=== PATIENT | female | born 1985 | race American Indian/Alaskan Native ===

== ENCOUNTER 2021-01-07 12:20 | Emergency (ER) | payer MEDICAID ==
[~2021-01-07] VITALS: Ht 167.6 cm; Wt 113.6 kg
[2021-01-07] MEDS ORDERED: LORazepam 1 MG tablet PO ONE (12:45)
[2021-01-07] MEDS ORDERED: haloperidol lactate 5mg/ml inj IM ONE (12:45)
[2021-01-07 12:56] LABS: BASOPHILS # (AUTO) 0.1 X10'3 (0-0.2); BASOPHILS % (AUTO) 0.8 % (0-1); EOSINOPHILS # (AUTO) 0.1 X10'3 (0-0.9); EOSINOPHILS % (AUTO) 0.7 % (0-6); HEMATOCRIT 51.9 % (35.0-45.0); LYMPHOCYTES # (AUTO) 1.9 X10'3 (1.1-4.8); LYMPHOCYTES % (AUTO) 18.5 % (21-51); MEAN CORPUSCULAR HEMOGLOBIN 29.7 PG (27.0-31.0); MEAN CORPUSCULAR HGB CONC 32.8 g/dL (33.0-36.5); MEAN CORPUSCULAR VOLUME 90.5 FL (78-98); MEAN PLATELET VOLUME 8.8 FL (7.4-10.4); MONOCYTES # (AUTO) 0.5 X10'3 (0-0.9); MONOCYTES % (AUTO) 4.5 % (2-12); NEUTROPHILS # (AUTO) 7.7 X10'3 (1.8-7.7); NEUTROPHILS % (AUTO) 75.5 % (42-75); PLATELET COUNT 328 X10'3 (140-440); RED BLOOD COUNT 5.74 X10'6 (4.20-5.60); RED CELL DISTRIBUTION WIDTH 14.3 % (11.5-14.5); WHITE BLOOD COUNT 10.2 X10'3 (4.5-11.0)
[2021-01-07 13:12] LABS: ALANINE AMINOTRANSFERASE 108 U/L (12-78); ALBUMIN 3.8 G/DL (3.4-5.0); ALBUMIN/GLOBULIN RATIO 0.9 (1.1-1.5); ALKALINE PHOSPHATASE 109 IU/L (46-116); ANION GAP 14 (8-16); ASPARTATE AMINO TRANSFERASE 85 U/L (10-37); BILIRUBIN,TOTAL 0.6 MG/DL (0.1-1.0); BLOOD UREA NITROGEN 8 MG/DL (7-18); BUN/CREATININE RATIO 10.8 (6.6-38.0); CALCIUM 9.3 MG/DL (8.5-10.1); CHLORIDE 106 MMOL/L (99-107); CREATININE 0.74 MG/DL (0.40-0.90); GLUCOSE 254 MG/DL (70-104); POTASSIUM 4.6 MMOL/L (3.5-5.1); SODIUM 142 MMOL/L (135-145); TOTAL CARBON DIOXIDE 22.4 MMOL/L (24-32); TOTAL PROTEIN 8.2 G/DL (6.4-8.2); eGFR 89 ML/MIN
[2021-01-07 13:25] LABS: ETHANOL < 0.010 GM/DL (0.0-0.010)
[2021-01-07 18:21] LABS: URINE HCG NEGATIVE (NEG)
[2021-01-07 18:23] LABS: CLARITY,URINE CLOUDY (Clear); COLOR,URINE YELLOW (Yellow); GLUCOSE, URINE NEGATIVE (Neg); KETONES,URINE NEGATIVE (Neg); LEUKOCYTE ESTERASE ,URINE NEGATIVE (Neg); NITRITES, URINE NEGATIVE (Neg); OCCULT BLOOD,URINE NEGATIVE (Neg); PROTEIN,URINE NEGATIVE (Neg); UROBILINOGEN,URINE 0.2 E.U/dL (0.2-1.0)
[2021-01-07 18:24] LABS: UA COLLECTION TYPE VOIDED
[2021-01-07 18:29] LABS: URINE AMPHETAMINE SCREEN POSITIVE (Neg); URINE BARBITUATE SCREEN NEGATIVE (Neg); URINE BENZODIAZEPINES SCREEN NEGATIVE (Neg); URINE CANNABINOID SCREEN POSITIVE (Neg); URINE COCAINE SCREEN NEGATIVE (Neg); URINE METHADONE SCREEN NEGATIVE (Neg); URINE OPIATE SCREEN NEGATIVE (Neg); URINE PHENCYCLIDINE SCREEN NEGATIVE (Neg)
[2021-01-07 18:31] LABS: MUCUS STRANDS MANY /LPF (Neg); SQUAMOUS EPITHELIAL CELL,UR MANY /LPF (FEW)
[2021-01-07 18:32] LABS: BACTERIA,URINE 2+ /HPF (Neg); RBC,URINE 0-2 /HPF (0-2); WBC,URINE 0-4 /HPF (0-4)
--- NOTE | 2021-01-07 18:46 | NUR ---
One to one with the patient after she was moved to bed 23 in the ER overflow. She was very coperative with the move and gave a urine sample and was agreeable to covid swab. She has a flat affect. Her speech was soft and monotone. She reports she has been having increasing auditory hallucinations for several weeks and at this point are fairly constant. She states at times they are command to harm herself. When asked how her mood was she stated, "I don't really know how I feel" She stated that she has been having with paranoia and at times it changes to different things. She stated that she is having suicidal thoughts to take pills and other random things. She admits to using amphetamines. She reports her concentration and focus are very poor.
[2021-01-07] MEDS ORDERED: NO HOME MEDS (19:41)
--- NOTE | 2021-01-07 19:42 | NUR ---
The patient states she is a diabetic and was on insulin but could not state what she was taking. She stated that she has been off all medications since June
--- NOTE | 2021-01-07 19:47 | NUR ---
The patient appears to be sleeping on her bed
--- NOTE | 2021-01-07 19:51 | NUR ---
pt packet faxed to [facility]
--- NOTE | 2021-01-07 21:49 | NUR ---
The patient appears to be sleeping.
--- NOTE | 2021-01-07 22:50 | NUR ---
The patient appears to be sleeping
[2021-01-07] MEDS ORDERED: OLANZapine 2.5MG tablet PO ONE (23:05)
--- NOTE | 2021-01-07 23:14 | NUR ---
The patient is awake and stated voices were keeping her awake. She attempted to describe something that she felt would harm her and she asked that staff check on her during the night to make sure she was still alive. MD made aware and orders received.
--- NOTE | 2021-01-08 00:24 | NUR ---
The patient now appears to be sleeping
--- NOTE | 2021-01-08 01:43 | NUR ---
The patient appears to be sleeping
--- NOTE | 2021-01-08 04:17 | NUR ---
The patient appears to be sleeping
--- NOTE | 2021-01-08 05:09 | NUR ---
The patient has appeared to have slept well after receiving zyprexa 5mg
--- NOTE | 2021-01-08 05:10 | NUR ---
Call to [facility] and requested the patient be evaluated for medications
[2021-01-08 05:57] VITALS: BP 145/84
--- NOTE | 2021-01-08 06:38 | NUR ---
Patient sleeping on left side. No distress observed. Continue to monitor.
--- NOTE | 2021-01-08 07:59 | NUR ---
RN awoke patient to check BG. 152 without any treatment last night. Patient cooperative. Continue to monitor.
--- NOTE | 2021-01-08 09:20 | NUR ---
Patient sleeping. No distress obeserved. Continue to monitor.
--- NOTE | 2021-01-08 10:59 | NUR ---
relieving RN for break, pt is sleeping quietly on bed
--- NOTE | 2021-01-08 11:28 | NUR ---
[facility] calling for possible placement. Patient sleeping. No distress observed. Continue to monitor.
--- NOTE | 2021-01-08 12:10 | NUR ---
Patient sitting up and eating some of her breakfast. No distress observed. Continue to monitor.
--- NOTE | 2021-01-08 13:55 | NUR ---
relieving RN for break, sitter at bedside, pt is getting dressed as she is being transferred to [facility]
== END 2021-01-08 14:37 ==
LOC: ER 12:21
DX: F20.9 Schizophrenia, unspecified (principal); Z20.822 Contact with and (suspected) exposure to COVID-19; F29 Unspecified psychosis not due to a substance or known physiological condition; R45.851 Suicidal ideations; F15.10 Other stimulant abuse, uncomplicated; E11.65 Type 2 diabetes mellitus with hyperglycemia
CPT/HCPCS: 36415; 80053; 80305; 80320; 81001; 81025; 82948; 84443; 85025; 87635; 96372; 99285; C9803; J1630

== ENCOUNTER 2021-05-10 03:22 | Emergency (ER) | payer MEDICAID ==
[~2021-05-10] VITALS: Ht 165.1 cm; Wt 95.0 kg
[~2021-05-10 03:22] MED LIST: NO HOME MEDS
[2021-05-10] MEDS ORDERED: OLANZapine 5mg rapidly disint. tablet PO ONE (03:45)
[2021-05-10 04:30] LABS: BASOPHILS # (AUTO) 0.1 X10'3 (0-0.2); BASOPHILS % (AUTO) 0.7 % (0-1); EOSINOPHILS # (AUTO) 0.1 X10'3 (0-0.9); HEMATOCRIT 44.8 % (35.0-45.0); HEMOGLOBIN 15.1 g/dl (12.0-16.0); LYMPHOCYTES # (AUTO) 2.3 X10'3 (1.1-4.8); LYMPHOCYTES % (AUTO) 20.2 % (21-51); MEAN CORPUSCULAR HGB CONC 33.6 g/dL (33.0-36.5); MEAN CORPUSCULAR VOLUME 86.3 FL (78-98); MEAN PLATELET VOLUME 8.1 FL (7.4-10.4); MONOCYTES # (AUTO) 0.6 X10'3 (0-0.9); MONOCYTES % (AUTO) 5.1 % (2-12); NEUTROPHILS # (AUTO) 8.4 X10'3 (1.8-7.7); PLATELET COUNT 329 X10'3 (140-440); RED BLOOD COUNT 5.19 X10'6 (4.20-5.60); RED CELL DISTRIBUTION WIDTH 14.8 % (11.5-14.5); WHITE BLOOD COUNT 11.6 X10'3 (4.5-11.0)
[2021-05-10 04:42] LABS: URINE HCG NEGATIVE (NEG)
[2021-05-10 04:53] LABS: ALANINE AMINOTRANSFERASE 55 U/L (12-78); ALBUMIN 3.3 G/DL (3.4-5.0); ALBUMIN/GLOBULIN RATIO 0.8 (1.1-1.5); ALKALINE PHOSPHATASE 97 IU/L (46-116); ANION GAP 14 (8-16); BILIRUBIN,TOTAL 0.2 MG/DL (0.1-1.0); BLOOD UREA NITROGEN 15 MG/DL (7-18); BUN/CREATININE RATIO 20.5 (6.6-38.0); CALCIUM 8.6 MG/DL (8.5-10.1); CHLORIDE 107 MMOL/L (99-107); CREATININE 0.73 MG/DL (0.40-0.90); SODIUM 141 MMOL/L (135-145); TOTAL CARBON DIOXIDE 19.7 MMOL/L (24-32); TOTAL PROTEIN 7.4 G/DL (6.4-8.2); eGFR 90 ML/MIN
[2021-05-10 04:55] LABS: URINE AMPHETAMINE SCREEN NEGATIVE (Neg); URINE BARBITUATE SCREEN NEGATIVE (Neg); URINE BENZODIAZEPINES SCREEN NEGATIVE (Neg); URINE CANNABINOID SCREEN NEGATIVE (Neg); URINE COCAINE SCREEN NEGATIVE (Neg); URINE METHADONE SCREEN NEGATIVE (Neg); URINE OPIATE SCREEN NEGATIVE (Neg); URINE PHENCYCLIDINE SCREEN NEGATIVE (Neg)
[2021-05-10 05:19] LABS: ASPARTATE AMINO TRANSFERASE 20 U/L (10-37); GLUCOSE 194 MG/DL (70-104); POTASSIUM 3.7 MMOL/L (3.5-5.1)
[2021-05-10 05:21] LABS: ETHANOL < 0.010 GM/DL (0.0-0.010)
--- NOTE | 2021-05-10 12:47 | NUR ---
PACKET SENT TO [facility]
--- NOTE | 2021-05-10 14:00 | NUR ---
PT HAS BEEN SEEN BY [facility]. PT HAS BEEN PLACED ON A 5150 FOR PSYCHOSIS
--- NOTE | 2021-05-10 15:00 | NUR ---
RN received pt. from main ER. Pt. is A&Ox4 and in no apparent distress. Pt. reports she is here because she became paranoid. Pt. has medical hx of diabetes type II. Pt. reports she only takes Risperdal 4mg po at night, the last time she took it being 05/09. Pt. reports taking Basaglar every monring, but reports she last took it a week ago. RN completed med reconcilation and faxed to pharmacy. Pt. denies SI/HI, A/V hallucinations. Pt. reports prior SA in December 2020, taking an OD of sleeping pills and she does not remember what they were. Pt. reports she was taken to this ER and then released.
[2021-05-10] MEDS ORDERED: RISP2TAB85 PO (16:34)
[2021-05-10] MEDS ORDERED: RISP4TAB7 PO (16:39)
[2021-05-10] MEDS ORDERED: INSU100I31 SQ (16:41)
--- NOTE | 2021-05-10 17:00 | NUR ---
Pt. awake and resting in bed on left side. Pt. answering this RNs questions and in no apparent distress.
[2021-05-10 17:50] LABS: CLARITY,URINE SLIGHTLY CLOUDY (Clear); COLOR,URINE YELLOW (Yellow); GLUCOSE, URINE NEGATIVE (Neg); KETONES,URINE NEGATIVE (Neg); LEUKOCYTE ESTERASE ,URINE TRACE (Neg); NITRITES, URINE NEGATIVE (Neg); OCCULT BLOOD,URINE NEGATIVE (Neg); PROTEIN,URINE NEGATIVE (Neg); UROBILINOGEN,URINE 0.2 E.U/dL (0.2-1.0)
[2021-05-10 17:52] LABS: UA COLLECTION TYPE CLN CATCH MIDSTREAM
[2021-05-10 17:57] LABS: BACTERIA,URINE FEW /HPF (Neg); CAL OXALATE CRYSTALS 3+ /HPF (NEGATIVE); MUCUS STRANDS NONE SEEN /LPF (Neg); RBC,URINE NONE SEEN /HPF (0-2); SQUAMOUS EPITHELIAL CELL,UR MODERATE /LPF (FEW)
--- NOTE | 2021-05-10 18:18 | NUR ---
Pt. ate all her dinner and went back to sleep. Pt. lying on left side. Normal R&R of respiration observed. Pt. in no apparent distress.
--- NOTE | 2021-05-10 20:16 | NUR ---
Assumed care from LEANNE Kaiser. Pt moved to [address] and helped into position of comfort. Pt sleeping at this time, even respirations and in no signs of distress.
[2021-05-10] MEDS: insulin glargine (Lantus) pen - multi-dose SQ SCH (21:00)
[2021-05-10] MEDS ORDERED: risperiDONE 2mg tablet PO SCH (21:00)
--- NOTE | 2021-05-10 23:01 | NUR ---
Pt resting, up to restroom two times, given sandwich and will give Lantus now. Pt states she takes her blood sugar medicine twice a day but cannot remember the name.
--- NOTE | 2021-05-11 01:20 | NUR ---
PT IS SLEEPING, EVEN UNLABORED RESPIRATIONS, NO SIGNS OF DISTRESS
--- NOTE | 2021-05-11 04:44 | NUR ---
PT IS SLEEPING ON LEFT SIDE, EVEN UNLABORED RESPIRATIONS
--- NOTE | 2021-05-11 05:36 | NUR ---
[facility] CALLED FOR NURSE TO NURSE REGARDING PT. THEY REQUESTED A TSH AND COVID SWAB TO BE PERFORMED SO THEY CAN ADMIT PT.
--- NOTE | 2021-05-11 07:00 | NUR ---
Received Pt in bed sleeping w/o distress. Pt transfered from main ER to ER Overflow.
[2021-05-11] MEDS: insulin glargine (Lantus) pen - multi-dose SQ SCH (08:40)
--- NOTE | 2021-05-11 09:30 | NUR ---
Pts AM BS was 170. Pt received AM/15u Lantus and ate breakfast. Pt pleasat and cooperative. [facility] called for nurse to nurse report.
[2021-05-11] MEDS ORDERED: LORazepam 0.5 MG tablet PO PRN (12:10)
--- NOTE | 2021-05-11 12:15 | NUR ---
Pt in bed sleeping w/o distress. Addendum: 05/11/21 at 1648 by [email or web address] Completed Covid test for in-pt placement.
--- NOTE | 2021-05-11 14:32 | NUR ---
[facility] requesting HCG, COVID, and U/A results. RN faxed results to [facility] office.
--- NOTE | 2021-05-11 16:51 | NUR ---
Pt given Ativan for anxiety with good effect at 1451.
--- NOTE | 2021-05-11 16:53 | NUR ---
Pt accepted at [facility] by Willard SARAH, with estimated grape picker by [facility] at 1830.
[2021-05-11 19:15] VITALS: BP 102/62
== END 2021-05-11 19:21 ==
LOC: ER 03:22
DX: F41.9 Anxiety disorder, unspecified (principal); R44.0 Auditory hallucinations; Z20.822 Contact with and (suspected) exposure to COVID-19
CPT/HCPCS: 36415; 80053; 80305; 80320; 81001; 81025; 82948; 84443; 85025; 87635; 96372; 99285; C9803; J1815